=== PATIENT | male | born 1995 | race Caucasian/White ===

== ENCOUNTER 2017-06-13 16:28 | Emergency (ER) | payer MEDICAID, OTHER ==
[2017-06-13 16:28] VITALS: BMI 22.6
[2017-06-13 17:03] VITALS: RESP 18; TEMP 97.9
[2017-06-13] MEDS ORDERED: Albuterol-Ipratrop 3 mg / 0.5 (3 ml) UD INH STA (17:08)
[2017-06-13] MEDS ORDERED: Albuterol-Ipratrop 3 mg / 0.5 (3 ml) UD ONE (17:15)
--- NOTE | 2017-06-13 17:48 | C.PDOC ---
History Of Present Illness 22 year old male, with a history of asthma, presents to the ED with complaints of mild shortness of breath and pain to the right side of chest that began when he woke up today. Patient reports symptoms "feel familiar" to his asthma, but he states he "hasn't had asthma in awhile." He denies cough, fever, injuries/ falls, rashes. Time Seen by Provider: 06/13/17 16:48 Chief Complaint (Nursing): Chest Pain History Per: Patient History/Exam Limitations: no limitations Onset/Duration Of Symptoms: Hrs Current Symptoms Are (Timing): Still Present Sick Contacts (Context): None Associated Symptoms: denies: Fever, Cough, Vomiting, Diarrhea Severity: Mild Past Medical History Reviewed: Historical Data, Nursing Documentation, Vital Signs Vital Signs: Last Vital Signs Temp 97.9 F 06/13/17 17:01 Pulse 82 06/13/17 18:09 Resp 18 06/13/17 18:09 BP 110/70 06/13/17 18:09 Pulse Ox 100 06/13/17 20:35 - Medical History PMH: Asthma - [facility] Procedures NEBULIZER THERAPY (07/15/14) Family History: States: No Known Family Hx - Social History Hx Tobacco Use: No Hx Alcohol Use: No Hx Substance Use: No - Immunization History Hx Tetanus Toxoid Vaccination: Yes Hx Influenza Vaccination: No Hx Pneumococcal Vaccination: No Review Of Systems Except As Marked, All Systems Reviewed And Found Negative. Constitutional: Negative for: Fever Cardiovascular: Negative for: Chest Pain, Palpitations Respiratory: Positive for: Shortness of Breath. Negative for: Cough Skin: Negative for: Rash Physical Exam - Physical Exam Appears: Well, Non-toxic, No Acute Distress Skin: Warm, Dry Eye(s): bilateral: Normal Inspection Oral Mucosa: Moist Neck: Supple Chest: Symmetrical, No Deformity, No Tenderness Cardiovascular: Rhythm Regular Respiratory: No Accessory Muscle Use, No Rales, No Rhonchi, No Wheezing, Other ( mildly decreased air entry B/L) Gastrointestinal/Abdominal: Normal Exam, Bowel Sounds, Soft, No Tenderness Extremity: Normal ROM, No Tenderness Neurological/Psych: Oriented x3 ED Course And Treatment ECG: Interpreted By Me, Viewed By Me (NSR 80 bpm, normal axis, LVH, no acute ST/ T wave changes) ECG Interpretation: No Acute Changes O2 Sat by Pulse Oximetry: 100 (RA) Pulse Ox Interpretation: Normal - Radiology CXR: Interpreted by Me, Viewed By Me CXR Interpretation: Yes: No Acute Disease. No: Infiltrates Progress Note: EKG and CXR ordered and reviewed. Patient given PO tylenol and albuterol nebulizer treatment. Reevaluation Time: 18:00 Reassessment Condition: Improved (On reassessment, patient is resting comfortably and states he feels better. On exam, he has good air entry B/L. CXR and EKG ordered and reviewed. Patient is well appearing, with normal vitals. Rxs given for naprosyn and albuterol inhaler. Patient instructed to follow up with PMD in 1-2 days, and he understands he should return to ED if symptoms worsen.) Disposition Counseled Patient/Family Regarding: Studies Performed, Diagnosis, Need For Followup, Rx Given - Disposition Referrals: [facility] [Outside] Disposition: HOME/ ROUTINE Disposition Time: 18:00 Condition: STABLE Additional Instructions: FOLLOW UP WITH YOUR DOCTOR/CLINIC IN 1-2 DAYS USE MEDICATIONS DIRECTED RETURN TO ER IF SYMPTOMS WORSEN Prescriptions: Albuterol HFA [Ventolin HFA 90 mcg/actuation (8 g)] 0.09 mg IH Q4 PRN #1 puff PRN Reason: Wheezing Naproxen 375 mg PO BID PRN #20 tablet PRN Reason: pain Instructions: Asthma (ED), Chest Wall Pain (ED) Forms: [facility] ([facility] [employer]) (Citizen Of [place]) Print Language: YORUBA - Clinical Impression Clinical Impression: Chest wall pain, Bronchospasm, Asthma - Scribe Statement The provider has reviewed the documentation as recorded by the Yobanyibmicky Asher All medical record entries made by the Yobanyibmicky were at my direction and personally dictated by me. I have reviewed the chart and agree that the record accurately reflects my personal performance of the history, physical exam, medical decision making, and the department course for this patient. I have also personally directed, reviewed, and agree with the discharge instructions and disposition.
[2017-06-13 18:10] VITALS: BP 110/70; PULSE 82
[2017-06-13 19:20] VITALS: O2SAT 100
--- NOTE | 2017-06-15 11:25 | CARD ---
APPROVED REPORT EKG Measurement Heart [id number] <Conclusion> Normal sinus rhythm Minimal voltage criteria for LVH, may be normal variant Borderline ECG
== END 2017-06-13 18:10 | disposition home or self-care (01) ==
LOC: C.ER 16:28
DX: J45.909 Unspecified asthma, uncomplicated (principal); R07.89 Other chest pain